=== PATIENT | female | born 1990 | race Caucasian/White ===

== ENCOUNTER → 2022-03-08 | Outpatient (CLI) | payer OTHER, SELFPAY ==
[2022-03-08 18:45] LABS: Absolute Lymphocyte Count 1.84 X10^3/uL (0.83-4.51); Absolute Neutrophil Count 5.2 X10^3/uL (2.0-7.7); Basophil# 0.04 X10^3/uL; Basophil% 0.5 % (0-1); Eosinophil# 0.08 X10^3/uL; Hematocrit 41.3 % (37-47); Hemoglobin 13.6 g/dL (12.0-15.0); Lymphocyte # 1.84 X10^3/ul (0.83-4.51); Mean Corp Hgb Conc 32.9 g/dL (32-36); Mean Corpuscular Hgb 28.6 pg (27.0-32.0); Mean Corpuscular Volume 86.8 fL (81-99); Mean Platelet Vol. 11.1 fl (6.2-12.0); Monocyte% 6.5 % (0-10); NRBC Flagged by Analyzer 0 % (0-5); Neutrophil # 5.18 X10^3/uL (2.7-7.7); Neutrophil % 67.6 % (47-70); Platelet Count 287 K/mm3 (150-450); RBC Distribution Width CV 12.8 % (11.6-14.6); RBC Distribution Width SD 40.4 fl (35.1-43.9); Red Blood Count 4.76 M/mm3 (4.2-5.4); White Blood Count 7.7 K/mm3 (4.4-11.0)
[2022-03-08 19:08] LABS: Vitamin B12 493 pg/mL (211-911); Vitamin D,25 Hydroxy 21.8 ng/mL
[2022-03-08 19:26] LABS: AST(SGOT) 16 U/L (15-37); Alanine Aminotransfer ALT/SGPT 22 U/L (13-56); Alkaline Phosphatase 91 U/L (45-117); Anion Gap 8 (5-15); BUN 16 mg/dL (7-18); BUN/Creat Ratio 17.3 RATIO (10-20); Calcium,Total 8.9 mg/dL (8.5-10.1); Chloride 106 mmol/L (98-107); Creatinine, Serum 0.92 mg/dL (0.55-1.02); EST Glomerular Filtration Rate 76 mL/min (>60); Est Glom Filt Rate - Afr Amer 92 mL/min (>60); Ferritin 47 ng/mL (8-252); Globulin 3.9 g/dL (2.2-4.2); Glucose 88 mg/dL (74-106); Potassium 3.7 mmol/L (3.5-5.1); Protein, Total 7.9 g/dL (6.4-8.2); Sodium Level 139 mmol/L (136-145); Thyroid Stim Hormone (TSH) 2.37 uIU/mL (0.358-3.74)
== END | disposition home or self-care (01) ==
LOC: MFPLAB 14:49
PROVIDERS: PCP Family Medicine; Visit Provider Family Medicine
DX: R53.83 Other fatigue (principal)
CPT/HCPCS: 36415; 80053; 82306; 82607; 82728; 84443; 85025

== ENCOUNTER → 2022-03-29 | Outpatient (CLI) | payer OTHER, SELFPAY ==
--- NOTE | 2022-03-29 14:00 | ECHOD_ITS ---
Reason For Study: MVP Procedure This was a 2D Doppler, Color Flow transthoracic echocardiogram. Exam performed in department. Left Ventricle Normal LV size. Left ventricular systolic function is normal. The estimated ejection fraction is 55 %. Normal diastology for age. No regional wall motion abnormalities noted. Right Ventricle Normal RV size. Normal systolic function. Atria Normal left atrium. Normal right atrium. Mitral Valve Equivocal mitral valve prolapse. Tricuspid Valve Normal tricuspid valve. Aortic Valve Normal aortic valve. Trisinus/trileaflet aortic valve. Pulmonic Valve Normal pulmonic valve. Great Vessels Normal aortic root. The pulmonary artery is normal size. Normal inferior vena cava. Pericardium/Pleural No pericardial effusion. MMode/2D Measurements & Calculations LVIDd: 5.4 cm IVSd: 0.64 cm Ao root diam: 2.6 cm LVIDs: 4.0 cm LVPWd: 0.74 cm RVDd: 2.8 cm FS: 26.3 % LAV(MOD-bp): 46.6 ml LVAd ap4: 33.0 cm2 LVAd ap2: 29.4 cm2 LAV(MOD-bp) Indexed: 28.5 ml/m2 LVLd ap4: 8.0 cm LVLd ap2: 7.6 cm LAV(MOD-sp2): 35.9 ml EDV(MOD-sp4): 118.2 ml EDV(MOD-sp2): 99.4 ml LAV(MOD-sp4): 49.8 ml EDV(sp4-el): 115.4 ml EDV(sp2-el): 96.7 ml LVAs ap4: 17.8 cm2 LVAs ap2: 17.5 cm2 LVLs ap4: 6.3 cm LVLs ap2: 6.4 cm ESV(MOD-sp4): 46.5 ml ESV(MOD-sp2): 42.3 ml ESV(sp4-el): 43.1 ml ESV(sp2-el): 40.6 ml EF(MOD-sp4): 60.6 % EF(MOD-sp2): 57.4 % EF(sp4-el): 62.6 % SV(MOD-sp4): 71.6 ml SV(MOD-sp2): 57.1 ml SV(sp4-el): 72.3 ml LA dimension(2D): 2.7 cm LA A4 area: 16.6 cm2 RA A4 area: 12.6 cm2 Time Measurements MV dec time: 0.21 sec Doppler Measurements & Calculations MV E max daryl: 71.0 cm/sec Lat Peak E' Daryl: 19.7 cm/sec Med Peak E' Daryl: 15.0 cm/sec MV A max daryl: 42.0 cm/sec E/E' lat: 3.6 E/E' med: 4.7 MV E/A: 1.7 MV dec slope: 347.2 cm/sec2 Ao V2 max: 108.7 cm/sec LV V1 max: 86.6 cm/sec Ao max P.7 mmHg LV V1 max P.0 mmHg Ao V2 mean: 77.9 cm/sec LV V1 mean P.6 mmHg Ao mean P.7 mmHg LV V1 mean: 59.6 cm/sec Ao V2 VTI: 25.0 cm LV V1 VTI: 19.2 cm PA V2 max: 79.4 cm/sec ECHO/Echo Complete Interpretation Summary Normal LV size. Left ventricular systolic function is normal. The estimated ejection fraction is 55 %. Normal diastology for age. Equivocal mitral valve prolapse. Ordering Physician: Maricel Beyer Referring Physician: Maricel Beyer Performed By: Della Pope, LONA, RVT
== END | disposition home or self-care (01) ==
LOC: CVS 13:59
PROVIDERS: PCP Family Medicine; Referring Provider Family Medicine; Visit Provider Family Medicine
DX: I34.1 Nonrheumatic mitral (valve) prolapse (principal)
CPT/HCPCS: 93306

== ENCOUNTER → 2022-04-05 | Outpatient (CLI) | payer OTHER, SELFPAY | END | disposition home or self-care (01) | LOC: LABSPEC 15:00 | PROVIDERS: PCP Family Medicine; Visit Provider Family Medicine | DX: R39.89 Other symptoms and signs involving the genitourinary system (principal) | CPT/HCPCS: 87086; 87088 ==